=== PATIENT | male | born 1975 | race Two or more races ===

== ENCOUNTER 2017-09-28 18:50 | Inpatient (IN) | payer OTHER ==
[2017-09-28 20:10] VITALS: BMI 24.4
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
[2017-09-28] MEDS ORDERED: P-EPHED 60MG/TRIPROLIDI 2.5MG TABLET PO PRN (20:44)
[2017-09-28] MEDS ORDERED: MENTHOL/PHENOL 1 EACH UD MM PRN (20:44)
[2017-09-28] MEDS ORDERED: IBUPROFEN 400 MG TABLET (FP) PO PRN (20:44)
[2017-09-28] MEDS ORDERED: MAGNESIUM CITRATE 300 ML BOTTLE PO PRN (20:44)
[2017-09-28] MEDS ORDERED: LOPERAMIDE HCL 2 MG CAPSULE PO PRN (20:44)
[2017-09-28] MEDS ORDERED: MAG HYDROX/AL HYDROX/SIMETH 30 ML UNIT-DOSE CUP PO PRN (20:44)
[2017-09-28] MEDS ORDERED: MAGNESIUM HYDROX 2400MG/30ML ORAL SUSPENSION 30 ML CUP PO PRN (20:44)
[2017-09-28] MEDS ORDERED: ACETAMINOPHEN 325 MG TABLET (FP) PO PRN (20:44)
[2017-09-28] MEDS ORDERED: guaiFENesin/D-METHORPHAN HB 10 ML UNIT-DOSE CUPS PO PRN (20:44)
[2017-09-28] MEDS ORDERED: NICOTINE POLACRILEX 2 MG GUM BUC PRN (20:44)
[2017-09-29 00:25] LABS: URINE APPEARANCE CLEAR; URINE BILIRUBIN NEGATIVE (NEGATIVE); URINE BLOOD NEGATIVE (NEGATIVE); URINE COLOR STRAW; URINE GLUCOSE (UA) NEGATIVE (NEGATIVE); URINE KETONE NEGATIVE (NEGATIVE); URINE LEUK ESTERASE NEGATIVE (NEGATIVE); URINE NITRITE NEGATIVE (NEGATIVE); URINE PROTEIN NEGATIVE (NEGATIVE); URINE UROBILINOGEN NEGATIVE mg/dL (0.2-1.0)
[2017-09-29] MEDS: THIAMINE HCL 100 MG TABLET (FP) PO SCH ×2 (07:30→21:02)
[2017-09-29] MEDS: NICOTINE 21 MG/24 HOURS TOPICAL PATCH TD SCH (09:34)
[2017-09-29] MEDS: PRENATAL VITAMINS W/ FOLIC ACID TABLET (FP) PO SCH (09:34)
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
--- NOTE | 2017-09-29 10:49 | EKG ---
Test Reason : Blood Pressure : / mmHG Vent. Rate : 073 BPM Atrial Rate : 073 BPM P-R Int : 148 ms QRS Dur : 094 ms QT Int : 396 ms P-R-T Axes : 069 061 057 degrees QTc Int : 436 ms NORMAL SINUS RHYTHM NORMAL ECG NO PREVIOUS ECGS AVAILABLE Confirmed by MD YESICA, WILLARD (2012) on 09/29/2017 10:49:39 AM Referred By: Aletha Parrish Confirmed By:WILLARD ROBERT MD
[2017-09-29 11:07] LABS: MCH 28.1 pg (25.7-33.7); MCHC 33.9 g/dl (32.0-35.9); MEAN CELL VOLUME 83.1 fl (80-96); PLATELET COUNT 212 K/MM3 (134-434); RDW 15.5 % (11.9-15.9); WHITE BLOOD COUNT 9.9 K/mm3 (4.0-10.0)
[2017-09-29 11:08] LABS: ALBUMIN 3.7 g/dl (3.4-5.0); ANION GAP 8 (8-16); BILIRUBIN,TOTAL 0.2 mg/dL (0.2-1.0); CALCIUM 8.9 mg/dL (8.5-10.1); CO2 29 mmol/L (21-32); CREATININE 0.9 mg/dL (0.7-1.3); GLUCOSE,RANDOM 85 mg/dL (74-106); SGOT/AST 10 U/L (15-37); SGPT/ALT 19 U/L (12-78); TOT PROT 6.4 g/dl (6.4-8.2)
[2017-09-29 11:10] LABS: ALK PHOS 90 U/L (45-117)
[2017-09-29 13:52] LABS: URINE LEUK ESTERASE Negative (NEGATIVE)
[2017-09-29] MEDS: hydrOXYzine PAMOATE 50 MG CAPSULE (FP) PO PRN (21:03)
[2017-09-30] MEDS: PRENATAL VITAMINS W/ FOLIC ACID TABLET (FP) PO SCH (09:38)
[2017-09-30] MEDS: NICOTINE 21 MG/24 HOURS TOPICAL PATCH TD SCH (09:38)
[2017-09-30] MEDS: THIAMINE HCL 100 MG TABLET (FP) PO SCH (21:03)
[2017-09-30] MEDS: hydrOXYzine PAMOATE 50 MG CAPSULE (FP) PO PRN (21:03)
[2017-10-01] MEDS: NICOTINE 21 MG/24 HOURS TOPICAL PATCH TD SCH (10:49)
[2017-10-01] MEDS: PRENATAL VITAMINS W/ FOLIC ACID TABLET (FP) PO SCH (10:49)
[2017-10-01] MEDS: THIAMINE HCL 100 MG TABLET (FP) PO SCH (21:03)
[2017-10-01] MEDS: hydrOXYzine PAMOATE 50 MG CAPSULE (FP) PO PRN (21:03)
[2017-10-02] MEDS: NICOTINE 21 MG/24 HOURS TOPICAL PATCH TD SCH (09:46)
[2017-10-02] MEDS: PRENATAL VITAMINS W/ FOLIC ACID TABLET (FP) PO SCH (09:46)
[2017-10-02] MEDS: CLOTRIMAZOLE 1% CREAM 15 GM TUBE TP SCH (21:08)
[2017-10-02] MEDS: THIAMINE HCL 100 MG TABLET (FP) PO SCH (21:08)
[2017-10-02] MEDS: hydrOXYzine PAMOATE 50 MG CAPSULE (FP) PO PRN (21:09)
[2017-10-03] MEDS: hydrOXYzine PAMOATE 50 MG CAPSULE (FP) PO PRN ×2 (02:27→21:17)
[2017-10-03] MEDS: PRENATAL VITAMINS W/ FOLIC ACID TABLET (FP) PO SCH (09:49)
[2017-10-03] MEDS: CLOTRIMAZOLE 1% CREAM 15 GM TUBE TP SCH ×2 (09:50→21:17)
[2017-10-03] MEDS: NICOTINE 21 MG/24 HOURS TOPICAL PATCH TD SCH (09:50)
[2017-10-03] MEDS: THIAMINE HCL 100 MG TABLET (FP) PO SCH (21:17)
[2017-10-04] MEDS: NICOTINE 21 MG/24 HOURS TOPICAL PATCH TD SCH (09:46)
[2017-10-04] MEDS: PRENATAL VITAMINS W/ FOLIC ACID TABLET (FP) PO SCH (09:46)
[2017-10-04] MEDS: CLOTRIMAZOLE 1% CREAM 15 GM TUBE TP SCH ×2 (09:46→21:08)
[2017-10-04] MEDS: THIAMINE HCL 100 MG TABLET (FP) PO SCH (21:07)
[2017-10-04] MEDS: hydrOXYzine PAMOATE 50 MG CAPSULE (FP) PO PRN (21:08)
[2017-10-05] MEDS: PRENATAL VITAMINS W/ FOLIC ACID TABLET (FP) PO SCH (09:43)
[2017-10-05] MEDS: NICOTINE 21 MG/24 HOURS TOPICAL PATCH TD SCH (09:44)
[2017-10-05] MEDS: CLOTRIMAZOLE 1% CREAM 15 GM TUBE TP SCH ×2 (09:44→21:10)
[2017-10-05] MEDS: THIAMINE HCL 100 MG TABLET (FP) PO SCH (21:10)
[2017-10-06] MEDS: PRENATAL VITAMINS W/ FOLIC ACID TABLET (FP) PO SCH (09:28)
[2017-10-06] MEDS: CLOTRIMAZOLE 1% CREAM 15 GM TUBE TP SCH (09:28)
[2017-10-06] MEDS: NICOTINE 21 MG/24 HOURS TOPICAL PATCH TD SCH (09:29)
--- NOTE | 2017-10-06 15:58 | PN ---
[facility] Progress Note (SOAP) Subjective: c/o groin rash not responsive to antifugal or steroid cream and boils growing on his butt does nto want to show Objective: 10/06/17 15:57 Vital Signs - 24 hr 10/06/17 10/06/17 10/06/17 00:30 03:30 06:43 Temperature 97.9 F Pulse Rate 77 Respiratory 18 18 18 Rate Blood Pressure 137/77 Laboratory Tests 09/28/17 09/28/17 09/29/17 07:00 21:00 07:00 WBC 9.9 D RBC 5.45 Hgb 15.3 Hct 45.2 MCV 83.1 MCH 28.1 MCHC 33.9 RDW 15.5 Plt Count 212 MPV 9.0 Sodium Potassium Chloride Carbon Dioxide Anion Gap BUN Creatinine Creat Clearance w eGFR Random Glucose Calcium Total Bilirubin AST ALT Alkaline Phosphatase Total Protein Albumin Urine Color Straw Urine Appearance Clear Urine pH 6.0 Ur Specific [place] 1.011 Urine Protein Negative Urine Glucose (UA) Negative Urine Ketones Negative Urine Blood Negative Urine Nitrite Negative Urine Bilirubin Negative Urine Urobilinogen Negative Ur Leukocyte Esterase Negative RPR Titer Hepatitis C Antibody <0.1 09/29/17 09/29/17 07:00 07:00 WBC RBC Hgb Hct MCV MCH MCHC RDW Plt Count MPV Sodium 140 Potassium 4.5 Chloride 103 Carbon Dioxide 29 Anion Gap 8 BUN 15 Creatinine 0.9 Creat Clearance w eGFR > 60 Random Glucose 85 Calcium 8.9 Total Bilirubin 0.2 D AST 10 L ALT 19 Alkaline Phosphatase 90 Total Protein 6.4 Albumin 3.7 Urine Color Urine Appearance Urine pH Ur Specific [place] Urine Protein Urine Glucose (UA) Urine Ketones Urine Blood Urine Nitrite Urine Bilirubin Urine Urobilinogen Ur Leukocyte Esterase RPR Titer Nonreactive Hepatitis C Antibody Assessment: 10/06/17 15:58 foliculitis/boils start bactrim s 1 bid and cleocin gel topical
[2017-10-06] MEDS: THIAMINE HCL 100 MG TABLET (FP) PO SCH (21:16)
[2017-10-06] MEDS: SULFAMETHOXAZOLE/TRIMETHOPRIM 800MG/160MG D.S. TABLET PO SCH (21:16)
[2017-10-06] MEDS: hydrOXYzine PAMOATE 50 MG CAPSULE (FP) PO PRN (21:17)
[2017-10-06] MEDS: CLINDAMYCIN PHOSPHATE 1% TOPICAL GEL 30 GM TUBE TP SCH (21:17)
[2017-10-06] MEDS ORDERED: SULFAMETHOXAZOLE/TRIMETHOPRIM 800MG/160MG D.S. TABLET PO SCH (22:00)
[2017-10-07] MEDS: PRENATAL VITAMINS W/ FOLIC ACID TABLET (FP) PO SCH (09:27)
[2017-10-07] MEDS: SULFAMETHOXAZOLE/TRIMETHOPRIM 800MG/160MG D.S. TABLET PO SCH ×2 (09:27→21:04)
[2017-10-07] MEDS: CLINDAMYCIN PHOSPHATE 1% TOPICAL GEL 30 GM TUBE TP SCH ×2 (09:28→21:07)
[2017-10-07] MEDS: NICOTINE 21 MG/24 HOURS TOPICAL PATCH TD SCH (09:28)
[2017-10-07] MEDS: THIAMINE HCL 100 MG TABLET (FP) PO SCH (21:05)
[2017-10-07] MEDS: hydrOXYzine PAMOATE 50 MG CAPSULE (FP) PO PRN (21:05)
[2017-10-08] MEDS: CLINDAMYCIN PHOSPHATE 1% TOPICAL GEL 30 GM TUBE TP SCH ×2 (09:36→21:04)
[2017-10-08] MEDS: PRENATAL VITAMINS W/ FOLIC ACID TABLET (FP) PO SCH (09:37)
[2017-10-08] MEDS: SULFAMETHOXAZOLE/TRIMETHOPRIM 800MG/160MG D.S. TABLET PO SCH ×2 (09:37→21:04)
[2017-10-08] MEDS: NICOTINE 21 MG/24 HOURS TOPICAL PATCH TD SCH (09:37)
[2017-10-08] MEDS: THIAMINE HCL 100 MG TABLET (FP) PO SCH (21:03)
[2017-10-08] MEDS: hydrOXYzine PAMOATE 50 MG CAPSULE (FP) PO PRN (21:05)
[2017-10-09] MEDS: SULFAMETHOXAZOLE/TRIMETHOPRIM 800MG/160MG D.S. TABLET PO SCH ×2 (09:59→21:09)
[2017-10-09] MEDS: PRENATAL VITAMINS W/ FOLIC ACID TABLET (FP) PO SCH (09:59)
[2017-10-09] MEDS: CLINDAMYCIN PHOSPHATE 1% TOPICAL GEL 30 GM TUBE TP SCH ×2 (09:59→21:09)
[2017-10-09] MEDS: NICOTINE 21 MG/24 HOURS TOPICAL PATCH TD SCH (09:59)
[2017-10-09] MEDS: THIAMINE HCL 100 MG TABLET (FP) PO SCH (21:09)
[2017-10-09] MEDS: hydrOXYzine PAMOATE 50 MG CAPSULE (FP) PO PRN (21:10)
[2017-10-10 06:23] VITALS: BP 136/69; PULSE 81; TEMP 97.9
[2017-10-10] MEDS: SULFAMETHOXAZOLE/TRIMETHOPRIM 800MG/160MG D.S. TABLET PO SCH (09:32)
[2017-10-10] MEDS: CLINDAMYCIN PHOSPHATE 1% TOPICAL GEL 30 GM TUBE TP SCH (09:32)
[2017-10-10] MEDS: PRENATAL VITAMINS W/ FOLIC ACID TABLET (FP) PO SCH (09:32)
[2017-10-10] MEDS: NICOTINE 21 MG/24 HOURS TOPICAL PATCH TD SCH (09:33)
--- NOTE | 2017-10-10 11:28 | PN ---
Psychiatric Progress Note Vital Signs: Vital Signs Period Temp Pulse Resp BP Sys/Pena Pulse Ox Last 24 Hr 97.9 F 81 18-18 136/69 Date of Session: 10/10/17 Chief Complaint:: Discharge note HPI: Patient addressing Alcohol, Cocaine and Cannabis Dependence comorbid with Nicotine Dependence and Mood Disorder Current Medications: Active Medications Generic Name Dose Route Start Last Admin Trade Name Freq PRN Reason Stop Dose Admin Acetaminophen 650 mg 09/28/17 20:44 Tylenol - PO Q4H PRN PAIN Al Hydroxide/Mg Hydroxide 30 ml 09/28/17 20:44 Mylanta Oral Suspension - PO Q6H PRN DYSPEPSIA Clindamycin Phosphate 1 applic 10/06/17 22:00 10/10/17 09:32 Cleocin 1% Gel - TP 1 applic BID JUANITA Administration Eucalyptus/Menthol/Phenol/Sorbitol 1 each 09/28/17 20:44 Cepastat Lozenge - MM Q4H PRN SORE THROAT Guaifenesin 10 ml 09/28/17 20:44 Robitussin Dm - PO Q6H PRN COUGH Hydroxyzine Pamoate 50 mg 09/28/17 20:44 10/09/17 21:10 Vistaril - PO 50 mg Q4H PRN Administration AGITATION Ibuprofen 400 mg 09/28/17 20:44 Motrin - PO Q6H PRN SEVERE PAIN Loperamide HCl 4 mg 09/28/17 20:44 Imodium - PO Q6H PRN DIARRHEA Magnesium Citrate 300 ml 09/28/17 20:44 Citroma - PO Q48H PRN CONSTIPATION Magnesium Hydroxide 30 ml 09/28/17 20:44 Milk Of Magnesia - PO DAILY PRN CONSTIPATION Nicotine 21 mg 09/29/17 10:00 10/10/17 09:33 Nicoderm Patch - TD Not Given DAILY JUANITA Nicotine Polacrilex 2 mg 09/28/17 20:44 Nicorette Gum - BUC Q2H PRN NICOTINE REPLACEMENT RX Multivit/Folic Acid/Iron 1 tab 09/29/17 10:00 10/10/17 09:32 Vitamins (Sjr) - PO 1 tab DAILY JUNAITA Administration Pseudoephedrine/Triprolidine 1 combo 09/28/17 20:44 Actifed - PO TID PRN NASAL CONGESTION Thiamine HCl 100 mg 09/28/17 22:00 10/09/17 21:09 Vitamin B1 - PO 100 mg HS JUANITA Administration Trimethoprim/Sulfamethoxazole 1 each 10/06/17 22:00 10/10/17 09:32 Bactrim Ds - PO 1 each BID JUANITA Administration Current Side Effect: No Lab tests ordered: Yes Lab tests reviewed: Yes Provider note:: Patient has completed this program today. He has met his treatment goals and will continue to address his issues in long tem residential treatment at [facility] at [address] [place] [address]. 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 He is stable for discharge today Total face to face time:: 35 Mental Status Exam - Mental Status Exam Alert and Oriented to: Time, Place, Person Cognitive Function: Fair Patient Appearance: Well Groomed Mood: Hopeful, Euthymic Affect: Appropriate Patient Behavior: Cooperative Speech Pattern: Clear Voice Loudness: Normal Thought Process: Intact Hallucinations: Denies Suicidal Ideation: Denies Homicidal Ideation: Denies Insight/Judgement: Fair Sleep: Fair Appetite: Good Muscle strength/Tone: Normal Gait/Station: Normal Psychiatric Treatment Plan - Problem List (1) Alcohol dependence Current Visit: Yes (2) Cocaine dependence Current Visit: Yes Qualifiers: Substance use status: uncomplicated Qualified Code(s): F14.20 - Cocaine dependence, uncomplicated (3) Cannabis dependence Current Visit: No Comment: K2 (4) Nicotine dependence Current Visit: No Qualifiers: Nicotine product type: cigarettes Substance use status: uncomplicated Qualified Code(s): F17.210 - Nicotine dependence, cigarettes, uncomplicated (5) Mood disorder Current Visit: No Initial treatment plan: Patient is discharged today and [facility] residential treatment
== END 2017-10-10 12:05 | disposition home or self-care (01) | DRG 772 ==
LOC: YASAS 18:50 → Y5N 20:18
PROVIDERS: ADMIT Psychiatry & Neurology Psychiatry; ATTEND Psychiatry & Neurology Psychiatry
PROC: HZ42ZZZ Group Counseling for Substance Abuse Treatment, Cognitive-Behavioral (ICD-10-PCS; principal; 2017-09-28)
DX: F10.20 Alcohol dependence, uncomplicated (principal); F14.20 Cocaine dependence, uncomplicated; F12.20 Cannabis dependence, uncomplicated; F17.210 Nicotine dependence, cigarettes, uncomplicated; F39 Unspecified mood [affective] disorder; F32.9 Major depressive disorder, single episode, unspecified; E78.00 Pure hypercholesterolemia, unspecified; M13.842 Other specified arthritis, left hand; M13.841 Other specified arthritis, right hand; M13.88 Other specified arthritis, other site; L73.8 Other specified follicular disorders; L02.224 Furuncle of groin; Z59.0 Homelessness
CPT/HCPCS: 36415; 80053; 81003; 85027; 86593; 86803; 93005; 93010

== ENCOUNTER 2019-12-10 15:04 | Inpatient (IN) | payer OTHER ==
--- NOTE | 2019-12-10 15:23 | BHS.RME ---
Substance Use & Tx History - Substance Use History Cocaine (Crack) Substance amount: $100 Frequency of use: Daily Substance route: Smoking Date of Last Use: 12/10/19 Alcohol Substance amount: 2 pints vodka Frequency of use: Daily Substance route: Oral Date of Last Use: 12/09/19 Cannabis (Synthetic) Substance amount: $50 Frequency of use: Daily Substance route: Smoking Date of Last Use: 12/10/19 - Last Treatment Date of last treatment: 2016 [facility] Treatment type: Substance Use Disorder (NIKOS) Where was last treatment: Detox CIWA Nausea/Vomitin Muscle Tremors: None Anxiety: 5 Agitation: 5 Paroxysmal Sweats: 4-Forehead w/Sweat Beads Orientation: 3-Disoriented Date>2 days Tacttile Disturbances: 3-Moderate Itch/Numb/Burn Auditory Disturbances: 0-None Visual Disturbances: 0-None Headache: 0-None Present CIWA-Ar Total Score: 23
[2019-12-10 17:06] VITALS: BMI 26.9
--- NOTE | 2019-12-10 18:11 | HP ---
CIWA Score Nausea/Vomitin Muscle Tremors: 3 Anxiety: 4-Mod. Anxious/Guarded Agitation: 4-Moderately Restless Paroxysmal Sweats: 3 Orientation: 3-Disoriented Date>2 days Tacttile Disturbances: 0-None Auditory Disturbances: 0-None Visual Disturbances: 0-None Headache: 0-None Present CIWA-Ar Total Score: 19 - Admission Criteria OASAS Guidelines: Admission for Medically Managed Detox: Requires at least one of the followin. CIWA greater than 12 2. Seizures within the past 24 hours 3. Delirium tremens within the past 24 hours 4. Hallucinations within the past 24 hours 5. Acute intervention needed for co occurring medical disorder 6. Acute intervention needed for co occurring psychiatric disorder 7. Severe withdrawal that cannot be handled at a lower level of care (continued vomiting, continued diarrhea, abnormal vital signs) requiring intravenous medication and/or fluids 8. Admitting History and Physical - Smoking History Smoking history: Current every day smoker Have you smoked in the past 12 months: Yes Aproximately how many cigarettes per day: 20 - Alcohol/Substance Use Hx Alcohol Use: Yes (age at first use 13, daily 1 pint of vodka) Admission ROS [facility] Chief Complaint: Alcohol withdrawal symptoms Allergies/Adverse Reactions: Allergies Allergy/AdvReac Type Severity Reaction Status Date / Time No Known Allergies Allergy Verified 12/10/19 17:00 History of Present Illness: 44 years old male with a long history of alcohol dependence is seeking admission to detox. Patient's last admission was for the period 09/28/2017-10/10 and he reports insignificant period of sobriety. He has medical history of gastritis and psych. history of depression, anxiety and bipolar disorder. He denies suicidal ideation at this time. He reports that he is unemployed and is in a residential program called [facility] that provides fdc and counseling. Exam Limitations: No Limitations - Ebola screening Have you traveled outside of the country in the last 21 days: No Have you had contact with anyone from an Ebola affected area: No Do you have a fever: No - Review of Systems Constitutional: Chills, Loss of Appetite, Malaise, Night Sweats EENT: reports: Nose Congestion Respiratory: reports: No Symptoms reported Cardiac: reports: No Symptoms Reported GI: reports: No Symptoms Reported, Abd. Pain w/ defecation, Diarrhea (diarrhea x 1), Nausea, Poor Fluid Intake, Vomiting (vomiting x 2), Abdominal cramping : reports: No Symptoms Reported Musculoskeletal: reports: Back Pain Integumentary: reports: Dryness, Flushing Neuro: reports: Tremors Endocrine: reports: No Symptoms Reported Hematology: reports: No Symptoms Reported Psychiatric: reports: Mood/Affect Appropiate, Orientated x3, Anxious, Depressed Other Systems: Reviewed and Negative Patient History - Patient Medical History Hx Anemia: No Hx Asthma: No Hx Chronic Obstructive Pulmonary Disease (COPD): No Hx Cancer: No Hx Cardiac Disorders: No Hx Congestive Heart Failure: No Hx Hypertension: No Hx Hypercholesterolemia: No Hx Pacemaker: No HX Cerebrovascular Accident: No Hx Seizures: No Hx Dementia: No Hx Diabetes: No Hx Gastrointestinal Disorders: Yes (Gastritis- Not on medixcation) Hx Liver Disease: No (LARGE LIVER) Hx Genitourinary Disorders: No Hx Sexually Transmitted Disorders: No Hx Renal Disease (ESRD): No Hx Thyroid Disease: No Hx Human Immunodeficiency Virus (HIV): No Hx Hepatitis C: No Hx Depression: Yes (Not on medication) Hx Suicide Attempt: No (Denies suic idal ideation at t5his time) Hx Bipolar Disorder: Yes (Not on [id number]) Hx Schizophrenia: No Other Medical History: Anxiety - not on medication - Patient Surgical History Past Surgical History: Yes Hx Neurologic Surgery: No Hx Cataract Extraction: No Hx Cardiac Surgery: No Hx Lung Surgery: No Hx Breast Surgery: No Hx Breast Biopsy: No Hx Abdominal Surgery: Yes (BILATERAL INGUINAL HERNIA REPAIRS 10/2014) Hx Appendectomy: No Hx Cholecystectomy: No Hx Genitourinary Surgery: No Hx Section: No Hx Orthopedic Surgery: No Anesthesia Reaction: No - PPD History Previous Implant?: Yes Documented Results: Negative w/proof Implanted On Prior [facility] Admission?: Yes Date: 10/01/17 Results: 0MM PPD to be Administered?: Yes - Reproductive History Patient is a Female of Child Bearing Age (11 -55 yrs old): No (male) - Smoking Cessation Smoking history: Current every day smoker Have you smoked in the past 12 months: Yes Aproximately how many cigarettes per day: 20 Hx Chewing Tobacco Use: No Initiated information on smoking cessation: Yes 'Breaking Loose' booklet given: 12/10/19 - Substance & Tx. History Hx Alcohol Use: Yes Hx Substance Use: Yes Substance Use Type: Alcohol, Cocaine Hx Substance Use Treatment: Yes ([facility]) - Substances abused Alcohol Substance route: Oral Frequency: Daily Amount used: liquor- 2 pints, beer- 1 six pk Age of first use: 13 Date of last use: 12/10/19 Admission Physical Exam [facility] - Vital Signs Vital Signs: Vital Signs - 24 hr 12/10/19 16:58 Temperature 97 F L Pulse Rate 71 Respiratory 18 Rate Blood Pressure 109/69 - Physical General Appearance: Yes: Moderate Distress, Tremorous, Irritable, Sweating, Anxious HEENTM: Yes: Within Normal Limits Respiratory: Yes: Lungs Clear, Normal Breath Sounds, No Respiratory Distress Neck: Yes: Within Normal Limits Breast: Yes: Breast Exam Deferred Cardiology: Yes: Within Normal Limits Abdominal: Yes: Within Normal Limits Genitourinary: Yes: Within Normal Limits Back: Yes: Normal Inspection Musculoskeletal: Yes: Within Normal Limits Extremities: Yes: Tremors Neurological: Yes: Within Normal Limits, 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, Alert Integumentary: Yes: Warm Lymphatic: Yes: Within Normal Limits - Diagnostic (1) Alcohol dependence with withdrawal, uncomplicated Current Visit: Yes Status: Acute (2) Gastritis Current Visit: Yes Status: Chronic Qualifiers: Gastritis type: unspecified gastritis Chronicity: unspecified (3) Anxiety Current Visit: Yes Status: Chronic (4) Cocaine dependence Current Visit: Yes Status: Chronic Qualifiers: Substance use status: in withdrawal Qualified Code(s): F14.23 - Cocaine dependence with withdrawal (5) Depression Current Visit: Yes Status: Chronic Qualifiers: Depression Type: unspecified Qualified Code(s): F32.9 - Major depressive disorder, single episode, unspecified (6) Nicotine dependence Current Visit: Yes Status: Chronic Qualifiers: Nicotine product type: cigarettes Substance use status: in withdrawal Qualified Code(s): F17.213 - Nicotine dependence, cigarettes, with withdrawal Cleared for Admission [facility] - Detox or Rehab [facility] Level of Care: Medically Managed Detox Regimen/Protocol: Librium Claeared for Rehab Admission: No Breathalyzer - Breathalyzer Breathalyzer: 0.034 Urine Drug Screen - Test Device Lot number: [id number] Expiration date: 09/21/21 - Control Is test valid?: Yes - Results Drug screen NEGATIVE: No Urine drug screen results: GONZALO-Cocaine Inpatient Rehab Admission - Rehab Decision to Admit Inpatient rehab admission?: No
[2019-12-10] MEDS ORDERED: METHOCARBAMOL 500 MG TABLET PO PRN (18:31)
[2019-12-10] MEDS ORDERED: MAGNESIUM HYDROX 2400MG/30ML ORAL SUSPENSION 30 ML CUP PO PRN (18:31)
[2019-12-10] MEDS ORDERED: MAG HYDROX/AL HYDROX/SIMETH 30 ML UNIT-DOSE CUP PO PRN (18:31)
[2019-12-10] MEDS ORDERED: chlordiazePOXIDE HCL 25 MG CAPSULE PO PRN (18:31)
[2019-12-10] MEDS ORDERED: ACETAMINOPHEN 325 MG TABLET (FP) PO PRN ×2 (18:31)
[2019-12-10] MEDS ORDERED: IBUPROFEN 400 MG TABLET (FP) PO PRN (18:31)
[2019-12-10] MEDS ORDERED: MELATONIN 5 MG TABLETS PO PRN (18:31)
[2019-12-10] MEDS ORDERED: MAGNESIUM CITRATE 300 ML BOTTLE PO PRN (18:31)
[2019-12-10] MEDS ORDERED: MENTHOL/PHENOL 1 EACH UD MM PRN (18:31)
[2019-12-10] MEDS ORDERED: NICOTINE POLACRILEX 2 MG GUM BUC PRN (18:31)
[2019-12-10] MEDS ORDERED: BISMUTH SUBSALICYLATE 524 MG/30 ML UD PO PRN (18:31)
[2019-12-10] MEDS: chlordiazePOXIDE HCL 25 MG CAPSULE PO SCH (22:48)
[2019-12-10] MEDS: THIAMINE HCL 100 MG TABLET (FP) PO SCH (22:48)
[2019-12-11] MEDS: chlordiazePOXIDE HCL 25 MG CAPSULE PO SCH ×4 (06:06→22:14)
--- NOTE | 2019-12-11 10:14 | PN ---
S CIWA - CIWA Score Nausea/Vomitin-Mild Nausea/No Vomiting Muscle Tremors: 3 Anxiety: 3 Agitation: 2 Paroxysmal Sweats: 2 Orientation: 1-Uncertain about Date Tacttile Disturbances: 0-None Auditory Disturbances: 0-None Visual Disturbances: 1-Very Mild Sensitivity Headache: 1-Very Mild CIWA-Ar Total Score: 14 S Progress Note (SOAP) Subjective: 44 years old male admitted on 12/10/19 for alcohol withdrawal sx management treating with librium detox regiment feeling ok but tired resting in bed prefers to stay in bed today limited conversation with staff Objective: 12/11/19 10:16 Vital Signs Temperature 97.0 F L 12/11/19 06:54 Pulse Rate 58 L 12/11/19 06:54 Respiratory Rate 18 12/11/19 06:54 Blood Pressure 113/70 12/11/19 06:54 O2 Sat by Pulse Oximetry (%) 12/11/19 10:16 lab pending Assessment: 12/11/19 10:17 alcohol withdrawal Plan: librium regiment
[2019-12-11] MEDS: NICOTINE 21 MG/24 HOURS TOPICAL PATCH TD SCH (10:36)
[2019-12-11] MEDS: PRENATAL VITAMINS W/ FOLIC ACID TABLET (FP) PO SCH (10:36)
--- NOTE | 2019-12-11 11:33 | EKG ---
Test Reason : Blood Pressure : / mmHG Vent. Rate : 066 BPM Atrial Rate : 067 BPM P-R Int : 136 ms QRS Dur : 092 ms QT Int : 414 ms P-R-T Axes : 070 064 053 degrees QTc Int : 434 ms NORMAL SINUS RHYTHM NORMAL ECG WHEN COMPARED WITH ECG OF 28-SEP-2017 22:37, NO SIGNIFICANT CHANGE WAS FOUND Confirmed by MD GARDNER MOYSES ([id number]) on 12/11/2019 11:32:50 AM Referred By: SAHU KABA Confirmed By:NANCY GARDNER MD
[2019-12-11 12:00] LABS: HEMATOCRIT 44.8 % (35.4-49); HEMOGLOBIN 15.5 GM/dL (11.7-16.9); MCH 29.3 pg (25.7-33.7); MCHC 34.5 g/dl (32.0-35.9); MEAN PLT VOLUME 9.2 fl (7.5-11.1); PLATELET COUNT 197 K/MM3 (134-434); RBC 5.27 M/mm3 (4.00-5.60); RDW 15.2 % (11.9-15.9)
[2019-12-11 12:09] LABS: ALBUMIN 3.5 g/dl (3.4-5.0); BILIRUBIN,TOTAL 0.5 mg/dL (0.2-1); BLOOD UREA NITROGEN 8.9 mg/dL (7-18); CALCIUM 8.8 mg/dL (8.5-10.1); POTASSIUM 4.3 mmol/L (3.5-5.1); TOT PROT 6.2 g/dl (6.4-8.2)
--- NOTE | 2019-12-11 13:38 | CONSULT ---
[facility] Psychiatric Consult - Data Date of interview: 12/11/19 Admission source: [facility] Identifying data: Revisit to [facility] [place] and admission to [address] [place] [address] for this 44 y/o [place] male self-referred for detoxification treatment. NIKOS issues : cannabis/K2, crack/cocaine, alcohol, nicotine. 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 Substance Abuse History: Discussed with patient. Details in current [facility] report as follows : Smoking history: Current every day smoker. Have you smoked in the past 12 months: Yes. Aproximately how many cigarettes per day: 20. Hx Chewing Tobacco Use: No. Initiated information on smoking cessation: Yes. 'Breaking Loose' booklet given: 12/10/19. - Substance & Tx. History. Hx Alcohol Use: Yes. Hx Substance Use: Yes. Substance Use Type: Alcohol, Cocaine. Hx Substance Use Treatment: Yes ([facility]). - Substances abused. Alcohol. Substance route: Oral. Frequency: Daily. Amount used: liquor- 2 pints, beer- 1 six pk. Age of first use: 13. Date of last use: 12/10/19 Medical History: Medical profile is remarkable for dyslipidemia, arthritis ( neck + hands), antecedent of fracture of lower mandible and bilateral inguinal herniorraphy (2015). Psychiatric History: Patient endorses history of 3-4 psychiatric hospitalizations. Onset of psychiatric disturbances at age 20 (mood disorder). Got admitted to [facility] and [facility] in [place] ( age 20 + 23). Medicated with risperdal (dose not recalled). Psychiatric care had continued during his years of incarceration. Mr Colby is known to the [facility] mental health clinic and [facility]. He admits no chronic non-adherence to medications + OPD care (years of non-compliance). No contact with psychiatrists. Patient wishes to resume risperdal. Denies history of suicide attempts. Physical/Sexual Abuse/Trauma History: Traumas : multiple arrests and incarcerations, homelessness, lack of a support network and addictions. Additional Comment: Urine drug screen results: GONZALO-Cocaine. Noted. Mental Status Exam - Mental Status Exam Alert and Oriented to: Time, Place, Person Cognitive Function: Good Patient Appearance: Unkempt, Disheveled Mood: Nervous, Withdrawn Affect: Mood Congruent, Constricted Patient Behavior: Fatigued, Cooperative Speech Pattern: Clear, Appropriate Voice Loudness: Normal Thought Process: Goal Oriented Thought Disorder: Not Present Hallucinations: Denies Suicidal Ideation: Denies Homicidal Ideation: Denies Insight/Judgement: Poor Sleep: Fair Appetite: Good Gait/Station: Normal Psychiatric Findings - Problem List ([place] 1, 2,3) (1) Alcohol dependence with withdrawal, uncomplicated Current Visit: Yes Status: Acute (2) Cocaine dependence Current Visit: Yes Status: Chronic Qualifiers: Substance use status: in withdrawal Qualified Code(s): F14.23 - Cocaine dependence with withdrawal (3) Nicotine dependence Current Visit: Yes Status: Chronic Qualifiers: Nicotine product type: cigarettes Substance use status: in withdrawal Qualified Code(s): F17.213 - Nicotine dependence, cigarettes, with withdrawal (4) Substance induced mood disorder Current Visit: Yes Status: Chronic (5) History of bipolar disorder Current Visit: Yes Status: Chronic Comment: Non compliant with OPD care and medications. - Initial Treatment Plan Initial Treatment Plan: Interview conducted with medical students in attendance (with patient's verbal permission). NO need for special observation ( discontinue 1:1 initiated by medical MOLDER SWEEP Carmen). Psychoeducation. Sleep hygiene. Detoxification. Rehabilitation recommended. AA meetings. MAT-ETOH discussed in session. Resumed, at patient's request : risperdal 1 mg po bid. Side effecst/benefits reviewed with patient. Mr Colby is in agreement with this plan of care. Gave his consent (verbal) to Observation.
[2019-12-11] MEDS: risperiDONE 1 MG TABLET PO SCH (22:14)
[2019-12-11] MEDS: THIAMINE HCL 100 MG TABLET (FP) PO SCH (22:14)
[2019-12-12] MEDS: chlordiazePOXIDE HCL 25 MG CAPSULE PO SCH ×4 (06:07→22:57)
[2019-12-12] MEDS ORDERED: hydrOXYzine PAMOATE 25 MG CAPSULE (FP) PO PRN (10:12)
--- NOTE | 2019-12-12 10:18 | PN ---
[facility] CIWA - CIWA Score Nausea/Vomitin-Mild Nausea/No Vomiting Muscle Tremors: 2 Anxiety: 1-Mildly Anxious Agitation: 1-Slight > Activity Paroxysmal Sweats: 1-Minimal Palms Moist Orientation: 0-Oriented Tacttile Disturbances: 0-None Auditory Disturbances: 0-None Visual Disturbances: 0-None Headache: 0-None Present CIWA-Ar Total Score: 6 BHS Progress Note (SOAP) Subjective: says he is feeling OK. O: Vital Signs - 24 hr 12/11/19 12/11/19 12/11/19 14:04 17:20 21:28 Temperature 96.1 F L 95.7 F L 96.6 F L Pulse Rate 67 58 L 77 Respiratory 18 18 18 Rate Blood Pressure 124/80 124/80 134/77 12/12/19 12/12/19 12/12/19 00:32 03:22 05:40 Temperature Pulse Rate 52 L Respiratory 18 18 18 Rate Blood Pressure 136/67 12/12/19 08:17 Temperature 96.6 F L Pulse Rate Respiratory Rate Blood Pressure Laboratory Tests 12/11/19 12/11/19 12/11/19 07:35 07:35 07:35 WBC 9.0 RBC 5.27 Hgb 15.5 Hct 44.8 MCV 85.0 MCH 29.3 MCHC 34.5 RDW 15.2 Plt Count 197 MPV 9.2 Sodium 139 Potassium 4.3 Chloride 107 Carbon Dioxide 26 Anion Gap 6 L BUN 8.9 Creatinine 1.0 Est GFR (CKD-EPI)AfAm 104.15 Est GFR (CKD-EPI)NonAf 89.86 Random Glucose 82 Calcium 8.8 Total Bilirubin 0.5 AST 15 ALT 20 Alkaline Phosphatase 87 Total Protein 6.2 L Albumin 3.5 RPR Titer Nonreactive a/p AUD- continue detox protocol, prn meds
[2019-12-12] MEDS: PRENATAL VITAMINS W/ FOLIC ACID TABLET (FP) PO SCH (11:46)
[2019-12-12] MEDS: risperiDONE 1 MG TABLET PO SCH ×2 (11:46→22:55)
[2019-12-12] MEDS: NICOTINE 21 MG/24 HOURS TOPICAL PATCH TD SCH (11:48)
[2019-12-12] MEDS: ONDANSETRON *ODT* 4 MG TABLET SL PRN (16:56)
--- NOTE | 2019-12-12 18:38 | PN ---
S Progress Note Note: Patient vomited x 2 Vital Signs Temperature 98.7 F 12/12/19 13:16 Pulse Rate 101 H 12/12/19 13:16 Respiratory Rate 18 12/12/19 13:16 Blood Pressure 143/99 12/12/19 13:16 O2 Sat by Pulse Oximetry (%) Action: Tigan 200mg IM ordered
[2019-12-12] MEDS ORDERED: TRIMETHOBENZAMIDE HCL 200MG/2ML INJ IM ONE (19:00)
[2019-12-12] MEDS: cloNIDine HCL 0.1 MG TABLET PO PRN (19:10)
[2019-12-12] MEDS: THIAMINE HCL 100 MG TABLET (FP) PO SCH (22:55)
[2019-12-13] MEDS ORDERED: chlordiazePOXIDE HCL 10 MG CAPSULE PO PRN
[2019-12-13] MEDS: ONDANSETRON *ODT* 4 MG TABLET SL PRN (01:54)
[2019-12-13] MEDS: chlordiazePOXIDE HCL 10 MG CAPSULE PO SCH ×4 (06:30→22:14)
[2019-12-13] MEDS: risperiDONE 1 MG TABLET PO SCH ×2 (10:55→22:14)
[2019-12-13] MEDS: NICOTINE 21 MG/24 HOURS TOPICAL PATCH TD SCH (10:55)
[2019-12-13] MEDS: PRENATAL VITAMINS W/ FOLIC ACID TABLET (FP) PO SCH (10:55)
--- NOTE | 2019-12-13 10:59 | PN ---
[facility] CIWA - CIWA Score Nausea/Vomitin Muscle Tremors: 2 Anxiety: 2 Agitation: 1-Slight > Activity Paroxysmal Sweats: 2 Orientation: 0-Oriented Tacttile Disturbances: 1-Very Mild Itch/Numbness Auditory Disturbances: 0-None Visual Disturbances: 0-None Headache: 0-None Present CIWA-Ar Total Score: 13 BHS Progress Note (SOAP) Subjective: interrupted sleep, sweats , shakes, nausea, vomiting but better after vomitted. Objective: 12/13/19 10:57 Vital Signs Temperature 96.3 F L 12/13/19 09:08 Pulse Rate 104 H 12/13/19 09:08 Respiratory Rate 18 12/13/19 09:08 Blood Pressure 122/79 12/13/19 09:08 O2 Sat by Pulse Oximetry (%) Laboratory Tests 12/11/19 12/11/19 12/11/19 07:35 07:35 07:35 WBC 9.0 RBC 5.27 Hgb 15.5 Hct 44.8 MCV 85.0 MCH 29.3 MCHC 34.5 RDW 15.2 Plt Count 197 MPV 9.2 Sodium 139 Potassium 4.3 Chloride 107 Carbon Dioxide 26 Anion Gap 6 L BUN 8.9 Creatinine 1.0 Est GFR (CKD-EPI)AfAm 104.15 Est GFR (CKD-EPI)NonAf 89.86 Random Glucose 82 Calcium 8.8 Total Bilirubin 0.5 AST 15 ALT 20 Alkaline Phosphatase 87 Total Protein 6.2 L Albumin 3.5 RPR Titer Nonreactive pt aox3 in nad lying in bed Assessment: 12/13/19 10:58 withdrawal sx's Plan: cont. detox increase fluids cont zofran prn
[2019-12-13] MEDS: cloNIDine HCL 0.1 MG TABLET PO PRN (14:36)
[2019-12-13] MEDS: THIAMINE HCL 100 MG TABLET (FP) PO SCH (22:15)
[2019-12-14] MEDS: chlordiazePOXIDE HCL 10 MG CAPSULE PO SCH (05:56)
[2019-12-14] MEDS: NICOTINE 21 MG/24 HOURS TOPICAL PATCH TD SCH (10:56)
[2019-12-14] MEDS: PRENATAL VITAMINS W/ FOLIC ACID TABLET (FP) PO SCH (10:56)
[2019-12-14] MEDS: risperiDONE 1 MG TABLET PO SCH (10:56)
--- NOTE | 2019-12-14 16:32 | PN ---
[facility] CIWA - CIWA Score Nausea/Vomitin-No Nausea/No Vomiting Muscle Tremors: None Anxiety: 0-No Anxiety, at Ease Agitation: 0-Normal Activity Paroxysmal Sweats: No Perspiration Orientation: 2-Disoriented Date<2 days Tacttile Disturbances: 0-None Auditory Disturbances: 0-None Visual Disturbances: 0-None Headache: 0-None Present CIWA-Ar Total Score: 2 BHS Progress Note (SOAP) Subjective: Patient denies current Withdrawal / Detox symptoms and reports that he feels well overall at this time. Objective: PATIENT A & O X 2 (UNCERTAIN ABOUT CURRENT DAY/ DATE). PATIENT OBSERVED AMBULATING ON DETOX UNIT UNASSISTED. IN NO ACUTE DISTRESS. 12/14/19 16:32 Vital Signs Temperature 98.6 F 12/14/19 12:45 Pulse Rate 101 H 12/14/19 12:45 Respiratory Rate 18 12/14/19 12:45 Blood Pressure 114/64 12/14/19 12:45 O2 Sat by Pulse Oximetry (%) Laboratory Tests 12/11/19 12/11/19 12/11/19 07:35 07:35 07:35 WBC 9.0 RBC 5.27 Hgb 15.5 Hct 44.8 MCV 85.0 MCH 29.3 MCHC 34.5 RDW 15.2 Plt Count 197 MPV 9.2 Sodium 139 Potassium 4.3 Chloride 107 Carbon Dioxide 26 Anion Gap 6 L BUN 8.9 Creatinine 1.0 Est GFR (CKD-EPI)AfAm 104.15 Est GFR (CKD-EPI)NonAf 89.86 Random Glucose 82 Calcium 8.8 Total Bilirubin 0.5 AST 15 ALT 20 Alkaline Phosphatase 87 Total Protein 6.2 L Albumin 3.5 RPR Titer Nonreactive LABS NOTED. Assessment: 12/14/19 16:33 WITHDRAWAL SYMPTOMS. Plan: CONTINUE DETOX. PATIENT SCHEDULED FOR D/C FROM DETOX UNIT TOMORROW.
[2019-12-15] MEDS: chlordiazePOXIDE HCL 10 MG CAPSULE PO SCH (00:28)
[2019-12-15] MEDS: THIAMINE HCL 100 MG TABLET (FP) PO SCH (00:28)
[2019-12-15] MEDS: risperiDONE 1 MG TABLET PO SCH ×2 (00:28→11:00)
[2019-12-15] MEDS ORDERED: chlordiazePOXIDE HCL 10 MG CAPSULE PO ONE (05:00)
[2019-12-15 09:58] VITALS: BP 138/73; PULSE 82; TEMP 97.9
[2019-12-15] MEDS: PRENATAL VITAMINS W/ FOLIC ACID TABLET (FP) PO SCH (11:03)
[2019-12-15] MEDS: NICOTINE 21 MG/24 HOURS TOPICAL PATCH TD SCH (11:04)
--- NOTE | 2019-12-15 14:57 | DS ---
[facility] Detox Discharge Summary Admission Date: 12/10/19 Discharge Date: 12/15/19 - History Present History: Alcohol Dependence Additional Comments: Patient completed detox successfully and discharged safely. Instructed to follow up with PCP within 1-2 weeks post discharge. Pertinent Past History: Gastritis Nicotine dependence Alcohol dependence - Physical Exam Results Vital Signs: Vital Signs Temperature 97.9 F 12/15/19 09:03 Pulse Rate 82 12/15/19 09:03 Respiratory Rate 18 12/15/19 09:03 Blood Pressure 138/73 12/15/19 09:03 O2 Sat by Pulse Oximetry (%) Elevated b/p: most likely due to anxiety of being discharged, b/p previously stable Pertinent Admission Physical Exam Findings: Withdrawal sxs Laboratory Tests 12/11/19 12/11/19 12/11/19 07:35 07:35 07:35 WBC 9.0 RBC 5.27 Hgb 15.5 Hct 44.8 MCV 85.0 MCH 29.3 MCHC 34.5 RDW 15.2 Plt Count 197 MPV 9.2 Sodium 139 Potassium 4.3 Chloride 107 Carbon Dioxide 26 Anion Gap 6 L BUN 8.9 Creatinine 1.0 Est GFR (CKD-EPI)AfAm 104.15 Est GFR (CKD-EPI)NonAf 89.86 Random Glucose 82 Calcium 8.8 Total Bilirubin 0.5 AST 15 ALT 20 Alkaline Phosphatase 87 Total Protein 6.2 L Albumin 3.5 RPR Titer Nonreactive Labs reviewed - Treatment Hospital Course: Detox Protocol Followed, Detoxed Safely, Responded well, Discharged Condition Good - Medication Discharge Medications: Ambulatory Orders NK [No Known Home Medication] 12/10/19 - Diagnosis (1) Alcohol dependence with withdrawal, uncomplicated Status: Acute (2) Depression Status: Chronic Qualifiers: Depression Type: unspecified Qualified Code(s): F32.9 - Major depressive disorder, single episode, unspecified (3) Gastritis Status: Chronic Qualifiers: Gastritis type: unspecified gastritis Chronicity: unspecified (4) History of bipolar disorder Status: Chronic (5) Nicotine dependence Status: Chronic Qualifiers: Nicotine product type: cigarettes Substance use status: in withdrawal Qualified Code(s): F17.213 - Nicotine dependence, cigarettes, with withdrawal (6) Elevated blood-pressure reading, without diagnosis of hypertension Status: Acute - AMA Did Patient Leave Against Medical Advice: No (Instructed to follow up with PCP within 1-2 weeks)
--- NOTE | 2019-12-16 10:11 | EKG ---
Test Reason : Blood Pressure : / mmHG Vent. Rate : 045 BPM Atrial Rate : 045 BPM P-R Int : 114 ms QRS Dur : 090 ms QT Int : 434 ms P-R-T Axes : 040 065 058 degrees QTc Int : 375 ms SINUS BRADYCARDIA OTHERWISE NORMAL ECG WHEN COMPARED WITH ECG OF 10-DEC-2019 18:55, QT HAS SHORTENED Confirmed by Jasmyn Sorenson ([id number]) on 12/16/2019 10:11:03 AM Referred By: Confirmed By:Jasmyn Sorenson
== END 2019-12-15 12:35 | disposition home or self-care (01) | DRG 774 ==
LOC: YASAS 15:04 → Y3N 18:34 → Y6N 12-11 18:27
PROVIDERS: ADMIT Allergy & Immunology; ATTEND Allergy & Immunology
PROC: HZ2ZZZZ Detoxification Services for Substance Abuse Treatment (ICD-10-PCS; principal; 2019-12-10)
DX: F10.230 Alcohol dependence with withdrawal, uncomplicated (principal); F14.20 Cocaine dependence, uncomplicated; F19.20 Other psychoactive substance dependence, uncomplicated; F17.210 Nicotine dependence, cigarettes, uncomplicated; F19.24 Other psychoactive substance dependence with psychoactive substance-induced mood disorder; F31.9 Bipolar disorder, unspecified; F41.9 Anxiety disorder, unspecified; K29.70 Gastritis, unspecified, without bleeding; R03.0 Elevated blood-pressure reading, without diagnosis of hypertension
CPT/HCPCS: 36415; 80053; 85027; 86593; 93005; 93010; J0735; J2794; Q0162

== ENCOUNTER 2019-12-15 13:25 | Emergency (ER) | payer OTHER ==
[2019-12-15 13:49] VITALS: BP 186/100; PULSE 69; BMI 23.1
[2019-12-15] MEDS ORDERED: SODIUM CHLORIDE 1,000 ML IV STA (13:54)
[2019-12-15] MEDS ORDERED: HALOPERIDOL LACTATE 5 MG/ML IM ONE (14:12)
--- NOTE | 2019-12-15 14:18 | PDOC ---
History of Present Illness - General Chief Complaint: Pain Stated Complaint: ABDOMINAL PAIN Time Seen by Provider: 12/15/19 13:54 History Source: Patient Exam Limitations: No Limitations - History of Present Illness Initial Comments: 12/15/19 14:13 44YOM with h/o polysubstance use disorder (K2, EtOH, and crack cocaine) who p/w severe diffuse abdominal pain, nausea, and numerous episodes NBNB vomiting since this morning which he believes is due to "bad food". He denies f/c/ diarrhea/constipation, rectal bleeding or black or white stool, rash, WELLS, dizziness, lightheadedness, n/t/w focally, chest pain, SOB, or other symptoms. States the last time he used any substances was 6 days ago, and he was just discharged from [facility] and was in the waiting room for rehab admissions , trying to get admitted for rehab. Denies IVDU. Past History - Past Medical History Allergies/Adverse Reactions: Allergies Allergy/AdvReac Type Severity Reaction Status Date / Time No Known Allergies Allergy Verified 12/15/19 13:48 Home Medications: Ambulatory Orders NK [No Known Home Medication] 12/10/19 Anemia: No Asthma: No Cancer: No Cardiac Disorders: No CVA: No COPD: No CHF: No Dementia: No Diabetes: No GI Disorders: Yes (Gastritis- Not on medixcation) Disorders: No HTN: No Hypercholesterolemia: No Kidney Stones: No Liver Disease: No (LARGE LIVER) Seizures: No Thyroid Disease: No - Surgical History Abdominal Surgery: Yes (BILATERAL INGUINAL HERNIA REPAIRS 10/2014) Appendectomy: No Cardiac Surgery: No Cholecystectomy: No Lung Surgery: No Neurologic Surgery: No Orthopedic Surgery: No - Reproductive History Testicular Surgery: No - Psycho Social/Smoking Cessation Hx Smoking History: Current every day smoker Have you smoked in the past 12 months: Yes Number of Cigarettes Smoked Daily: 20 Cigars Per Day: 0 Information on smoking cessation initiated: Yes 'Breaking Loose' booklet given: 12/10/19 Hx Alcohol Use: Yes Drug/Substance Use Hx: Yes (K2 CRACK) Substance Use Type: Alcohol, Cocaine Hx Substance Use Treatment: Yes ([facility]) Review of Systems - Review of Systems Able to Perform ROS?: Yes Comments:: 12/15/19 14:16 GEN: no fever, chills, or generalized weakness HEENT: no ear pain, congestion, sore throat, vision change, or eye pain CV: no chest pain, palpitations, lightheadedness, syncope, or edema RESP: no SOB, wheezing, or cough GI: abdominal pain, nausea, vomiting, no diarrhea, constipation, or rectal bleed : no dysuria, hematuria, or discharge MSK: no muscle weakness or pain, no joint swelling or pain NEURO: no headache, vertigo, numbness, tingling, or focal weakness PSYCH: no SI, HI, or behavior change SKIN: no jaundice, rash, lesions, or unexplained bruises ROS otherwise negative except as noted in HPI *Physical Exam - Vital Signs Last Vital Signs Temp Pulse Resp BP Pulse Ox 69 20 186/100 H 98 12/15/19 13:37 12/15/19 13:37 12/15/19 13:37 12/15/19 13:37 - Physical Exam 12/15/19 14:16 GENERAL: uncomfortable appearing, in moderate distress, yelling intermittently and holding abdomen, A/Ox4, intermittently uncooperative, asking for medication for abdominal pain, actively vomiting NBNB emesis into emesis bag, standing and pacing hallway initially, appears unable to get comfortable HEENT: PERRLA, EOMI, moist mucous membranes NECK/BACK: left nose abrasions without vesicular or other lesion, no midline ttp , no spinal stepoff or deformity, no hematoma, full ROM, neck supple CARDIOVASCULAR: regular rate/rhythm, no MGR, strong peripheral pulses, capillary refill <2 seconds, extremities wwp, no edema LUNGS/RESPIRATORY: no respiratory distress, CTAB GI/ABDOMEN: symmetric [id number], normoactive BS, soft, with distraction there is no ttp, no midline pulsatile masses, no guarding or rebound : no CVA tenderness EXTREMITIES: no muscle atrophy, no acute deformity SKIN: warm and dry, no pallor, no jaundice, no rash, no bruising, no skin breakdown, no cuts, no lesions NEUROLOGICAL: GCS 15, CN II-XII grossly intact, 5/5 strength proximally and distally, no facial droop Heart Score/ECG Review #1 12/15/19 14:04 NSR, rate 76, normal axis, QTc 443 normal intervals, no ischemic ST-T changes ED Treatment Course - LABORATORY CBC & Chemistry Diagram: 12/15/19 14:00 12/15/19 14:00 Medical Decision Making - Medical Decision Making 12/15/19 14:22 44YOM with h/o polysubstance use disorder, reports no use in 6 days, who p/w diffuse abdominal pain, n/v NBNB emesis. Initial Vital Signs Pulse Resp BP Pulse Ox 69 20 186/100 H 98 12/15/19 13:37 12/15/19 13:37 12/15/19 13:37 12/15/19 13:37 Exam: As noted in Physical Exam section. DDX IBNLT: cannabinoid hyperemesis, pancreatitis, withdrawal of EtOH/K2/cocaine , SBO, biliary obstruction and/or infection, ureteral stone and/or obstructive uropathy, colitis, diverticulitis, etc. W/U ordered: Labs as noted below, EKG EKG: Reviewed; results as noted in ECG Review section. No QT prolongation as calculated or grossly observed. TX ordered: IVF, reglan, benadryl, haldol Laboratory Tests 12/15/19 12/15/19 12/15/19 14:00 14:00 14:00 WBC 10.6 H RBC 5.44 Hgb 15.9 Hct 45.7 MCV 84.0 MCH 29.1 MCHC 34.7 RDW 15.0 Plt Count 213 MPV 9.5 Absolute Neuts (auto) 7.0 Neutrophils % 65.7 D Lymphocytes % 18.6 D Monocytes % 12.9 H D Eosinophils % 2.4 D Basophils % 0.4 Nucleated RBC % 0 PT with INR INR PTT (Actin FS) Sodium 139 Potassium 4.1 Chloride 99 Carbon Dioxide 34 H Anion Gap 5 L BUN 15.8 Creatinine 1.1 Est GFR (CKD-EPI)AfAm 92.81 Est GFR (CKD-EPI)NonAf 80.08 Random Glucose 107 H Calcium 9.5 Phosphorus 2.8 Magnesium 2.3 Total Bilirubin 0.4 AST 24 ALT 25 Alkaline Phosphatase 96 Creatine Kinase 466 H Creatine Kinase Index 0.3 CK-MB (CK-2) 1.4 Troponin I < 0.02 Total Protein 7.2 Albumin 4.0 Lipase 184 Urine Color Urine Appearance Urine pH Ur Specific [place] Urine Protein Urine Glucose (UA) Urine Ketones Urine Blood Urine Nitrite Urine Bilirubin Urine Urobilinogen Ur Leukocyte Esterase Opiates Screen Methadone Screen Acetaminophen Barbiturate Screen Phencyclidine Screen Ur Amphetamines Screen MDMA (Ecstasy) Screen Benzodiazepines Screen Cocaine Screen U Marijuana (THC) Screen Alcohol, Quantitative < 3 12/15/19 12/15/19 12/15/19 14:00 14:00 15:30 WBC RBC Hgb Hct MCV MCH MCHC RDW Plt Count MPV Absolute Neuts (auto) Neutrophils % Lymphocytes % Monocytes % Eosinophils % Basophils % Nucleated RBC % PT with INR 11.60 INR 0.98 PTT (Actin FS) 27.9 Sodium Potassium Chloride Carbon Dioxide Anion Gap BUN Creatinine Est GFR (CKD-EPI)AfAm Est GFR (CKD-EPI)NonAf Random Glucose Calcium Phosphorus Magnesium Total Bilirubin AST ALT Alkaline Phosphatase Creatine Kinase Creatine Kinase Index CK-MB (CK-2) Troponin I Total Protein Albumin Lipase Urine Color Yellow Urine Appearance Turbid Urine pH >= 9.0 H D Ur Specific [place] 1.019 Urine Protein Trace Urine Glucose (UA) Negative Urine Ketones Negative Urine Blood Negative Urine Nitrite Negative Urine Bilirubin Negative Urine Urobilinogen 0.2 Ur Leukocyte Esterase Negative Opiates Screen Methadone Screen Acetaminophen <2.0 Barbiturate Screen Phencyclidine Screen Ur Amphetamines Screen MDMA (Ecstasy) Screen Benzodiazepines Screen Cocaine Screen U Marijuana (THC) Screen Alcohol, Quantitative 12/15/19 15:30 WBC RBC Hgb Hct MCV MCH MCHC RDW Plt Count MPV Absolute Neuts (auto) Neutrophils % Lymphocytes % Monocytes % Eosinophils % Basophils % Nucleated RBC % PT with INR INR PTT (Actin FS) Sodium Potassium Chloride Carbon Dioxide Anion Gap BUN Creatinine Est GFR (CKD-EPI)AfAm Est GFR (CKD-EPI)NonAf Random Glucose Calcium Phosphorus Magnesium Total Bilirubin AST ALT Alkaline Phosphatase Creatine Kinase Creatine Kinase Index CK-MB (CK-2) Troponin I Total Protein Albumin Lipase Urine Color Urine Appearance Urine pH Ur Specific [place] Urine Protein Urine Glucose (UA) Urine Ketones Urine Blood Urine Nitrite Urine Bilirubin Urine Urobilinogen Ur Leukocyte Esterase Opiates Screen Negative Methadone Screen Negative Acetaminophen Barbiturate Screen Negative Phencyclidine Screen Negative Ur Amphetamines Screen Negative MDMA (Ecstasy) Screen Negative Benzodiazepines Screen Positive A* Cocaine Screen Negative U Marijuana (THC) Screen Negative Alcohol, Quantitative 12/15/19 17:07 Reassessment: Patient states still very painful, states cannot manage the pain at home. Notes pain to epigastrium, also tender to palpation. Decision is made to do CTAP with IV contrast r/o burnt out pancreatitis, gallstone panceatitis, colitis, etc. CXR negative for acute pathology. CTAP negative for acute pathology. 12/15/19 18:50 This patient has benign abdominal exam with distraction at this time. States still in pain but comfortably resting in the hallway when no provider at bedside. On last reassessment, vitals are wnl, and exam is benign. Workup is not concerning for emergency-level pathology at this time. This patient is appropriate for discharge with close outpatient follow up. They are comfortable with this plan and will follow up with their PCP in 1-3 days. Patient states he does have a PCP in the [place]. Dr. Patricia spoke with [facility] who will be able to see him for possible intake appt tomorrow morning. Specific return precautions are discussed and they will come back to the ER if necessary. Discharge - Discharge Information Problems reviewed: Yes Clinical Impression/Diagnosis: Abdominal pain Qualifiers: Abdominal location: unspecified location Qualified Code(s): R10.9 - Unspecified abdominal pain Vomiting Qualifiers: Vomiting type: unspecified Vomiting Intractability: non-intractable Nausea presence: with nausea Qualified Code(s): R11.2 - Nausea with vomiting, unspecified Condition: Stable Disposition: HOME - Admission No - Follow up/Referral [place] [facility] [place] [facility] [place] Group] - Patient Discharge Instructions Additional Instructions: You were seen in the ER for abdominal pain and vomiting. We did an exam, labs, imaging studies, and an electrocardiogram, and there were no abnormalities. We gave you a copy of your CT scan report. We gave you medications which did help with the pain. After our assessment, we do not believe you are having a medical emergency at this time, and we believe you are safe to go home. Go to [facility] [place] tomorrow morning at 8 am to have an appointment for possible admission for rehab. Please follow up with your primary care provider in 1-3 days. Call their clinic, tell them you were seen in the ER, and tell them you need a follow-up. If you have any new or worsening symptoms, especially worsening pain, vomiting blood, black or bloody stool, fainting, hallucinations , or other emergency symptoms, please come back to the ER at any time (24 hours a day). If you are having severe or life threatening symptoms, or symptoms that make it unsafe to drive or have someone drive you, please call 911. - Post Discharge Activity
[2019-12-15] MEDS ORDERED: HALOPERIDOL LACTATE 5 MG/ML ONE (14:19)
[2019-12-15] MEDS ORDERED: METOCLOPRAMIDE HCL INJECTION 10 MG/2 ML VIAL IVPB ONE (14:19)
[2019-12-15] MEDS ORDERED: METOCLOPRAMIDE HCL INJECTION 10 MG/2 ML VIAL ONE (14:19)
--- NOTE | 2019-12-15 14:31 | PDOC ---
Attending Attestation - Resident Resident Name: Jeanette Holly - ED Attending Attestation I have performed the following: I have examined & evaluated the patient, The case was reviewed & discussed with the resident, I agree w/resident's findings & plan, Exceptions are as noted - HPI HPI: 12/15/19 14:32 44-year-old male brought in by ambulance from [address] [place] [address]. detox for abdominal pain. HPI he finished his alcohol detox and was discharged from detox earlier today. In reviewing the chart from [facility] he apparently supposed to start rehab and was waiting in the admitting waiting room when he started to yell of abdominal pain. Upon arrival he was very dramatic and screaming and yelling that he needed ice and appeared to be retching - Physicial Exam PE: 12/15/19 14:37 Tall well-nourished well-developed 44-year-old male yelling for ice head no acute trauma, no scalp lacerations abdomen no rebound, no guarding,soft lungs cta b/l cvs [id number] extremities no deformities, no weakness Neuro patient is alert and ambulating in the ER yelling for pain medicine 12/15/19 14:39 12/15/19 17:09 - Medical Decision Making 12/15/19 14:38 EKG is normal sinus rhythm at 76 bpm, QTC is equal to 443 ms 12/15/19 18:48 Labs reviewed LFTs are unremarkable, electrolytes are unremarkable, normal lipase CAT scan of the abdomen pelvis is negative for any acute abdominal or pelvic pathology 12/15/19 19:03 I called [facility] and this pt was discharged this morning from detox and he has to return in the morning at [address] [place] [address] for his rehab.they do not do rehab on the weekends 12/15/19 19:05
[2019-12-15 14:58] LABS: BASO % 0.4 % (0-2.0); EOS % 2.4 % (0-4.5); HEMATOCRIT 45.7 % (35.4-49); HEMOGLOBIN 15.9 GM/dL (11.7-16.9); LYMPH % 18.6 % (8-40); MCH 29.1 pg (25.7-33.7); MCHC 34.7 g/dl (32.0-35.9); MEAN PLT VOLUME 9.5 fl (7.5-11.1); MONO % 12.9 % (3.8-10.2); NEUT % 65.7 % (42.8-82.8); PLATELET COUNT 213 K/MM3 (134-434); RBC 5.44 M/mm3 (4.00-5.60); WHITE BLOOD COUNT 10.6 K/mm3 (4.0-10.0)
[2019-12-15] MEDS ORDERED: FAMOTIDINE 20 MG/50 ML IVPB 20 MG/50 ML MG IVPB ONE ×2 (15:10→16:05)
[2019-12-15] MEDS ORDERED: MAG HYDROX/AL HYDROX/SIMETH 30 ML UNIT-DOSE CUP PO ONE (15:10)
[2019-12-15 15:12] LABS: MAGNESIUM 2.3 mg/dL (1.8-2.4)
[2019-12-15 15:13] LABS: INR 0.98 (0.83-1.09); PROTHROMBIN TIME (PATIENT) 11.6 SEC (9.7-13.0)
[2019-12-15 15:15] LABS: ACTIVATED PTT 27.9 SECONDS (25.2-36.5)
[2019-12-15 15:19] LABS: ALK PHOS 96 U/L (45-117); ANION GAP 5 MMOL/L (8-16); BILIRUBIN,TOTAL 0.4 mg/dL (0.2-1); BLOOD UREA NITROGEN 15.8 mg/dL (7-18); CALCIUM 9.5 mg/dL (8.5-10.1); CHLORIDE 99 mmol/L (98-107); CO2 34 mmol/L (21-32); CREATININE 1.1 mg/dL (0.55-1.3); GLUCOSE,RANDOM 107 mg/dL (74-106); PHOSPHOROUS 2.8 mg/dL (2.5-4.9); POTASSIUM 4.1 mmol/L (3.5-5.1); SGOT/AST 24 U/L (15-37); SGPT/ALT 25 U/L (13-61); SODIUM 139 mmol/L (136-145); TOT PROT 7.2 g/dl (6.4-8.2)
[2019-12-15 16:05] LABS: PH,URINE >= 9.0 (5.0-8.0); URINE APPEARANCE TURBID; URINE BILIRUBIN NEGATIVE (NEGATIVE); URINE COLOR YELLOW; URINE GLUCOSE (UA) NEGATIVE (NEGATIVE); URINE KETONE NEGATIVE (NEGATIVE); URINE LEUK ESTERASE NEGATIVE (NEGATIVE); URINE NITRITE NEGATIVE (NEGATIVE); URINE PROTEIN TRACE (NEGATIVE); URINE UROBILINOGEN 0.2 mg/dL (0.2-1.0)
[2019-12-15] MEDS ORDERED: MAG HYDROX/AL HYDROX/SIMETH 30 ML UNIT-DOSE CUP ONE (16:05)
[2019-12-15 16:24] LABS: COCAINE, UR NEGATIVE ng/ml (CUTOFF=300); METHADONE, UR NEGATIVE ng/ml (CUTOFF=300); OPIATES, URI NEGATIVE ng/ml (CUTOFF=300); PHENCYCLIDINE,URINE NEGATIVE ng/ml (CUTOFF=25); URINE AMPHETAMINES NEGATIVE ng/ml (CUTOFF=500); URINE BARBITURATES NEGATIVE ng/ml (CUTOFF=200)
[2019-12-15 16:47] LABS: URINE BENZODIAZEPINES POSITIVE ng/ml (CUTOFF=200)
[2019-12-15] MEDS ORDERED: ACETAMINOPHEN 1000 MG/100 ML VIAL (NON FORMULARY) IVPB ONE (18:18)
[2019-12-15] MEDS ORDERED: SODIUM CHLORIDE 0.9% 500 ML INFUS.BAG IV ONE (18:18)
--- NOTE | 2019-12-16 09:21 | EKG ---
Test Reason : Blood Pressure : / mmHG Vent. Rate : 076 BPM Atrial Rate : 076 BPM P-R Int : 136 ms QRS Dur : 094 ms QT Int : 394 ms P-R-T Axes : 081 073 069 degrees QTc Int : 443 ms NORMAL SINUS RHYTHM POSSIBLE LEFT ATRIAL ENLARGEMENT BORDERLINE ECG WHEN COMPARED WITH ECG OF 12-DEC-2019 20:09, VENT. RATE HAS INCREASED BY 31 BPM QT HAS LENGTHENED Confirmed by Jasmyn Sorenson ([id number]) on 12/16/2019 9:21:02 AM Referred By: Confirmed By:Jasmyn Sorenson
== END 2019-12-15 19:36 | disposition home or self-care (01) ==
LOC: JER 13:25
PROC: 3E0337Z Introduction of Electrolytic and Water Balance Substance into Peripheral Vein, Percutaneous Approach (ICD-10-PCS; principal; 2019-12-15)
PROC: 3E033GC Introduction of Other Therapeutic Substance into Peripheral Vein, Percutaneous Approach (ICD-10-PCS; 2019-12-15)
PROC: 3E033GC Introduction of Other Therapeutic Substance into Peripheral Vein, Percutaneous Approach (ICD-10-PCS; 2019-12-15)
PROC: 3E033NZ Introduction of Analgesics, Hypnotics, Sedatives into Peripheral Vein, Percutaneous Approach (ICD-10-PCS; 2019-12-15)
PROC: 3E023NZ Introduction of Analgesics, Hypnotics, Sedatives into Muscle, Percutaneous Approach (ICD-10-PCS; 2019-12-15)
DX: R10.9 Unspecified abdominal pain (principal); R11.2 Nausea with vomiting, unspecified; F19.20 Other psychoactive substance dependence, uncomplicated; F17.210 Nicotine dependence, cigarettes, uncomplicated
CPT/HCPCS: 36415; 71046-TC-FY; 74177-TC; 80053; 80307; 81003; 82550; 82553; 83690; 83735; 84100; 84484; 85025; 85610; 85730; 93005; 93010; 96361; 96365; 96372; 96375; 96376; 99285-25; J7030; Q9967